=== PATIENT | female | born 1960 | race Caucasian/White ===

== ENCOUNTER 2020-04-13 14:41 | Emergency (ER) | payer BC, SELFPAY ==
--- NOTE | ~2020-04-13 | XR_ITS ---
EXAMINATION: XR knee LT min 4V DATE: 04/13/2020 15:25 INDICATION: Left knee pain. TECHNIQUE: 4 views of left knee were obtained. COMPARISON: None. FINDINGS: Bone alignment is normal. No fracture. There is mild osteoarthritis of medial and lateral c ompartments and moderate osteoarthritis of patellofemoral compartment. No knee joint effusion. IMPRESSION: 1. Moderate left knee osteoarthritis. Reviewed, dictated and finalized at location A. CUSTOMER SERVICE REPRESENTATIVE
[2020-04-13 15:04] VITALS: BP 143/117; PULSE 98; RESP 20; TEMP 37.6; O2SAT 98
--- NOTE | 2020-04-13 15:10 | ED.EXTPRO ---
HPI - Extremity Problem General Chief complaint: Extremity Problem,Nontraumatic Stated complaint: left leg pain Time Seen by Provider: 04/13/20 14:51 Source: patient Mode of arrival: ambulatory Limitations: no limitations History of Present Illness HPI Narrative: Patient presents for evaluation of left knee pain after experiencing a fall just prior to arrival. She indicates her dog hit her in the medial aspect of the left knee causing her to fall and land on her buttocks. She did not hit her head nor have loss of consciousness. She is anticoagulated with Xarelto due to history of DVT and PE. She failed Coumadin therapy and has an IVC filter. Plans are for anticoagulation for life. She states at rest her pain is 4 out of 10 in severity but with movement it increases to a 6 out of 10 in severity. No radicular component to the pain. States she had arthroscopic surgery on both knees about 30 years ago. Related Data Home Medications Medication Instructions Recorded Confirmed duloxetine 60 mg PO DAILY 04/13/20 04/13/20 eletriptan 40 mg PO ONCE 04/13/20 04/13/20 ibandronate 150 mg PO ONCE 04/13/20 04/13/20 levothyroxine [Synthroid] 112 mcg PO DAILY 04/13/20 04/13/20 liothyronine 5 mcg PO DAILY 04/13/20 04/13/20 plwyvb-evezswgv-ewzvnsw [Creon] 1 cap PO TID 04/13/20 04/13/20 rivaroxaban [Xarelto] 20 mg PO DAILY 04/13/20 04/13/20 sacrosidase [Sucraid] 2 ml PO 6XD 04/13/20 04/13/20 topiramate 50 mg PO BID 04/13/20 04/13/20 Allergies Allergy/AdvReac Type Severity Reaction Status Date / Time methimazole Allergy Mild Rash Verified 04/13/20 15:04 Penicillins Allergy Unknown Hives Verified 04/13/20 15:04 Review of Systems Review of Systems: Narrative: CONSTITUTIONAL: Denies fever, chills, or sweats. EYES: Denies visual changes, redness, or discharge. ENT: Denies rhinorrhea, congestion, sore throat, or otalgia. CARDIOVASCULAR: Denies chest pain, palpitations, or edema. RESPIRATORY: Denies cough or dyspnea. GASTROINTESTINAL: Denies abdominal pain, nausea, vomiting, or diarrhea. GENITOURINARY: Denies dysuria or hematuria. SKIN: Denies rash or itching. MUSCULOSKELETAL: Denies back pain, or myalgia. Reports left knee pain NEUROLOGIC: Denies headache, numbness, dizziness, or weakness. PSYCHIATRIC: Denies anxiety or depression. 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 HEAD: Normocephalic, atraumatic. EYES: PERRLA and EOMI. ENT: Nares clear, no rhinorrhea or epistaxis. Mucous membranes moist. Oropharynx without tonsillar hypertrophy exudate or other lesions. Bilateral TMs pearly sylvester nonbulging NECK: Supple. No adenopathy or masses. No carotid bruits or JVD CHEST: Clear to auscultation. No respiratory distress. No wheezes rales or rhonchi HEART: Regular rate and rhythm. No murmur heard. Normal peripheral pulses. ABDOMEN: Soft, nontender, nondistended, normal active bowel sounds. EXTREMITIES: Normal range of motion. No edema. Tenderness over lateral aspect of left knee without tenderness in the medial aspect o
[2020-04-13 15:52] VITALS: BP 138/89
== END 2020-04-13 15:54 | disposition home or self-care (01) ==
PROVIDERS: Emergency Provider Nurse Practitioner; PCP Internal Medicine
DX: S86.812A Strain of other muscle(s) and tendon(s) at lower leg level, left leg, initial encounter (principal); W54.1XXA Struck by dog, initial encounter; Z86.718 Personal history of other venous thrombosis and embolism; Z86.711 Personal history of pulmonary embolism; E03.9 Hypothyroidism, unspecified; Z79.01 Long term (current) use of anticoagulants
CPT/HCPCS: 73564; 99213; G0463

== ENCOUNTER → 2020-04-21 10:12 | Outpatient (CLI) | payer BC, SELFPAY ==
--- NOTE | ~2020-04-21 | MR_ITS ---
EXAMINATION: MR knee LT wo con DATE: 04/21/2020 10:52 INDICATION: Left knee pain. TECHNIQUE: Magnetic resonance imaging (MRI) of the left knee was performed without intravenous contra st. Sequences included axial PD-weighted FS FSE, coronal PD-weighted FSE and PD-weighted FS FSE, sagi ttal PD-weighted FSE, and sagittal T2-weighted FS FSE. COMPARISON: Left knee radiographs 04/13/2020 FINDINGS: Medial compartment: Medial meniscus is normal. There is deep partial thickness cartilage loss of tibial condyle involving the anterolateral articular surface. There is shallow partial-thickness cartilage loss of tibial con dyle involving the central articular surface. There is deep partial thickness cartilage loss of femor al condyle involving the central and lateral articular surface and shallow partial-thickness cartilag e loss involving the medial articular surface. There are tiny marginal osteophytes. Lateral compartment: Lateral meniscus is normal. There is shallow partial-thickness cartilage loss of tibial condyle invol ving the central articular surface. There is deep partial thickness cartilage loss of femoral condyle involving the anteromedial articular surface. Marginal osteophytes are noted. Patellofemoral compartment: There is full-thickness cartilage loss of patella involving the lateral facet, median ridge, and medi al facet with mild subchondral edema-like marrow signal intensity. There is full-thickness cartilage loss of central and lateral trochlea and partial thickness cartilage loss of medial trochlea with mil d subchondral edema-like marrow signal intensity. Osteophytes are noted. Ligaments and tendons: The anterior and posterior cruciate ligaments are normal. Medial collateral ligament is normal. There is a partial tear of biceps femoris tendon. There is a nondisplaced oblique fracture of head of the fibula. There is a sprain of fibular collateral ligament characterized by increased signal intensity. There is mild patellar tendinopathy. Fluid: There is no knee joint effusion. There is edema of suprapatellar fat pad, which is nonspecific but ma y be seen with impingement. IMPRESSION: 1. Nondisplaced oblique fracture of head of the fibula. 2. Partial tear of biceps femoris tendon. Sprain of fibular collateral ligament. 3. Severe chondrosis of patellofemoral compartment and moderate chondrosis of medial and lateral comp artments. Reviewed, dictated and finalized at location A. APEUTIC STRATEGY LEAD IMPRESSION: 1. Nondisplaced oblique fracture of head of the fibula. 2. Partial tear of biceps femoris tendon. Sprain of fibular collateral ligament . 3. Severe chondrosis of patellofemoral compartment and moderate chondrosis of m edial and lateral compartments.
== END ==
PROVIDERS: PCP Internal Medicine; Visit Provider Internal Medicine
DX: S82.832D Other fracture of upper and lower end of left fibula, subsequent encounter for closed fracture with routine healing (principal); X58.XXXD Exposure to other specified factors, subsequent encounter
CPT/HCPCS: 73721

== ENCOUNTER 2020-05-20 02:16 | Emergency (ER) | payer BC, SELFPAY ==
[2020-05-20 02:20] VITALS: BP 155/89; PULSE 105; RESP 22; TEMP 36.5; O2SAT 100
--- NOTE | 2020-05-20 02:27 | ED.DENTAL ---
HPI - Dental/Oral General Chief complaint: Dental/Oral Stated complaint: strep throat Time Seen by Provider: 05/20/20 02:27 Source: patient Mode of arrival: ambulatory Limitations: no limitations History of Present Illness HPI Narrative: Patient is a 59-year-old female who presents for evaluation of sore throat. Patient states she awakened with a hoarse voice, sore throat. She denies fever, rhinorrhea, shortness of breath. No loss of sense of taste or smell. No recent known Covid exposures. Patient was at a earlier in the week with many other people. Patient also states the right side of her neck is red and itchy. No new soaps, lotions or detergents. No wheezing. She does report a mild, dry cough. Patient is not having any difficulty with swallowing but does report pain. Related Data Home Medications Medication Instructions Recorded Confirmed duloxetine 60 mg PO DAILY 04/13/20 04/13/20 eletriptan 40 mg PO ONCE 04/13/20 04/13/20 ibandronate 150 mg PO ONCE 04/13/20 04/13/20 levothyroxine [Synthroid] 112 mcg PO DAILY 04/13/20 04/13/20 liothyronine 5 mcg PO DAILY 04/13/20 04/13/20 qbiwow-ghidbjqr-ntlhtff [Creon] 1 cap PO TID 04/13/20 04/13/20 rivaroxaban [Xarelto] 20 mg PO DAILY 04/13/20 04/13/20 sacrosidase [Sucraid] 2 ml PO 6XD 04/13/20 04/13/20 topiramate 50 mg PO BID 04/13/20 04/13/20 Allergies Allergy/AdvReac Type Severity Reaction Status Date / Time methimazole Allergy Mild Rash Verified 04/13/20 15:04 Penicillins Allergy Unknown Hives Verified 04/13/20 15:04 Review of Systems Review of Systems: Narrative: CONSTITUTIONAL: Denies fever, chills, or sweats. EYES: Denies visual changes, redness, or discharge. ENT: Denies rhinorrhea, congestion, reports sore throat, denies otalgia CARDIOVASCULAR: Denies chest pain, palpitations, or edema. RESPIRATORY: Reports dry cough without dyspnea GASTROINTESTINAL: Denies abdominal pain, nausea, vomiting, or diarrhea. GENITOURINARY: Denies dysuria or hematuria. SKIN: Denies rash or itching. MUSCULOSKELETAL: Denies back pain, joint pain, or myalgia. NEUROLOGIC: Denies headache, numbness, or weakness. 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 EYES: PERRLA and EOMI. ENT: Nares clear, no rhinorrhea or epistaxis. Mucous membranes moist. Uvula is midline. No trismus. No deviation. No evidence of peritonsillar abscess. Erythema of the posterior oropharynx with petechiae present. NECK: Supple. CHEST: No respiratory distress, breathing even and non labored, no wheezing HEART: Regular rate, sinus rhythm ABDOMEN:Non distended, non tender EXTREMITIES: Normal range of motion. No edema. SKIN: Warm, dry, no rash. NEURO:No focal deficits. Alert and oriented x3 Course Vital Signs Vital signs: Vital Signs Temperature 36.5 C 05/20/20 02:20 Pulse Rate 105 H 05/20/20 02:20 Respiratory Rate 22 H 05/20/20 02:20 Blood Pressure 155/89 H 05/20/20 02:20 Pulse Oximetry 100 05/20/20 02:20 Temperature 36.5 C 05/20/20 02:20 Pulse Rate 105 H 05/20/20 02:20 Respiratory Rate 22 H 05/20/20 02:20 Blood Pressure 155/89 H 05/20/20 02:20 Pulse Oximetry 100 05/20/20
[2020-05-20] MEDS: ACETAMINOPHEN 500 MG TABLET 1000 MG PO (02:59)
[2020-05-20] MEDS: DEXAMETHASONE SOD PHOS INJ 4 MG/ML VIAL 10 MG BY MOUTH (03:00)
[2020-05-20] MEDS: CLINDAMYCIN HCL 150 MG CAP 300 MG PO (03:15)
[2020-05-20 03:16] VITALS: BP 134/86; PULSE 88; RESP 16; TEMP 36.7; O2SAT 100
[2020-05-20] MEDS: diphenhydrAMINE HCl CAP 25 MG CAPSULE PO (03:16)
== END 2020-05-20 03:17 | disposition home or self-care (01) ==
PROVIDERS: Emergency Provider Emergency Medicine; PCP Internal Medicine
DX: J02.0 Streptococcal pharyngitis (principal); Z86.718 Personal history of other venous thrombosis and embolism; Z86.711 Personal history of pulmonary embolism; E03.9 Hypothyroidism, unspecified; Z79.01 Long term (current) use of anticoagulants
CPT/HCPCS: 87880; 99283; A9270; J1100

== ENCOUNTER → 2020-12-11 10:54 | Outpatient (CLI) | payer BC, SELFPAY ==
--- NOTE | ~2020-12-11 | MM_ITS ---
EXAMINATION: MM screening [facility] BI w keny HISTORY: Screening TECHNIQUE: Craniocaudal and mediolateral oblique 3-D tomosynthesis images were obtained and synthetic 2-D images were generated. CAD analysis was submitted and interpreted. COMPARISON: Comparison to multiple prior studies sequentially, with oldest reviewed study dated 12/2011. BREAST PARENCHYMAL COMPOSITION: There are scattered areas of fibroglandular density. FINDINGS: There is no evidence of suspicious mass, calcification, or architectural distortion to sugg est malignancy in either breast. There has been no suspicious interval change. IMPRESSION: 1. No mammographic evidence of malignancy. 2. Recommend routine screening mammography in one year. BI-RADS Category 1: Negative Reviewed, dictated and finalized at location A.
== END ==
PROVIDERS: PCP Internal Medicine; Visit Provider Obstetrics & Gynecology
DX: Z12.31 Encounter for screening mammogram for malignant neoplasm of breast (principal)
CPT/HCPCS: 77063; 77067

== ENCOUNTER 2022-01-31 06:24 | Emergency (ER) | payer BC, SELFPAY ==
[2022-01-31] VITALS (10 sets, daily range): BP systolic 122–147; BP diastolic 73–83; PULSE 81–95; RESP 11–22; TEMP 36.8; O2SAT 98–100
--- NOTE | ~2022-01-31 | CT_ITS ---
EXAMINATION: CT abdomen pelvis w con DATE: 01/31/2022 07:52 INDICATION: Mid abdominal pain. Diarrhea. Fever. TECHNIQUE: Computed tomography (CT) of the abdomen and pelvis was performed with 100 mL Omnipaque 350 intravenous contrast. Automated exposure control and iterative reconstruction technique were employe d. The dose-length product was 392.12 mGy-cm. COMPARISON: CT abdomen and pelvis 10/18/2012 FINDINGS: The visualized portions of the lung bases demonstrate mild atelectasis. No pleural effusion . The heart size is normal. No pericardial effusion. There is a 6 mm cyst in the liver. The spleen is normal. There is a gallstone in the gallbladder, which is distended. The pancreas, adrenal glands, a nd kidneys are normal. There is a filter in the infrarenal inferior vena cava. There are surgical rosemary nges of the stomach. There is wall thickening throughout the colon and involving the distal ileum, co nsistent with enterocolitis. There are no pathologically enlarged lymph nodes. There is no free intra peritoneal fluid. There is severe lower lumbar spondylosis. IMPRESSION: 1. Enterocolitis. 2. Cholelithiasis. Gallbladder distention may be secondary to fasting or acute cholecystitis. Reviewed, dictated and finalized at location A.
--- NOTE | ~2022-01-31 | US_ITS ---
EXAMINATION: US abdomen limited DATE: 01/31/2022 08:43 INDICATION: Cholecystitis. TECHNIQUE: Multiple grayscale and Doppler ultrasound images of the abdomen were obtained. COMPARISON: CT abdomen and pelvis 01/31/2022 FINDINGS: The visualized portions of the head, body, and tail of the pancreas are normal. The liver i s normal without focal lesion. There is normal flow in main portal vein. The gallbladder is distended and contains gallstones. No gallbladder wall thickening or sonographic Hayes sign. The common duct is mildly dilated to 8 mm. IMPRESSION: 1. Cholelithiasis. Gallbladder distention may be secondary to fasting. No gallbladder wall thickening or sonographic Hayes sign to suggest acute cholecystitis. 2. Mildly dilated common duct. Reviewed, dictated and finalized at location A. IMPRESSION: 1. Cholelithiasis. Gallbladder distention may be secondary to fasting. No gallb ladder wall thickening or sonographic Haeys sign to suggest acute cholecystiti s. 2. Mildly dilated common duct.
[2022-01-31 07:08] LABS: Alanine Aminotransferase 17 U/L (6-35); Albumin Level 3.9 g/dL (3.5-5.1); Alkaline Phosphatase 81 U/L (38-126); Anion Gap 11 mmol/L (8-16); Aspartate Amino Transferase 27 U/L (14-36); Bilirubin,Total 0.6 mg/dL (0.2-1.3); Blood Urea Nitrogen 10 mg/dL (7-17); Calcium 7.9 mg/dL (8.4-10.2); Carbon Dioxide 24 mmol/L (22-30); Chloride 99 mmol/L (98-107); Estimated CRCL calculation 76 ml/min; Estimated Glomerular Filt Rate > 60; Glucose 92 mg/dL (65-110); Lipase 26 U/L (23-300); Potassium 3.4 mmol/L (3.4-5.0); Sodium 134 mmol/L (137-145)
[2022-01-31 07:25] LABS: Basophils Percent Auto 0.3 % (0.2-1.2); Eosinophils Absolute Auto 0.1 K/mm3 (0-0.3); Eosinophils Percent Auto 0.6 % (0-4.4); Hematocrit 41.8 % (37.0-47.0); Hemoglobin 14.2 g/dL (12.0-15.0); Immature Granulocyte Absolute 0.09 K/mm3 (0.00-0.031); Lymphocytes Absolute Auto 0.99 K/mm3 (0.9-3.2); Lymphocytes Percent Auto 11.1 % (18.3-44.2); Mean Corpuscular Hemoglobin 29.3 pg (26-34); Mean Corpuscular Volume 86.2 fl (80-100); Mean Platelet Volume 9.9 fl (7.4-10.4); Monocytes Percent Auto 11.1 % (2.6-8.5); Neutrophils Absolute Auto 6.8 K/mm3 (1.3-6.7); Neutrophils Percent Auto 75.9 % (45.5-73.1); Platelet Count Result 216 k/mm3 (150-375); Red Blood Count 4.85 M/mm3 (4.2-5.4); Red Cell Distribution Width 13.1 % (11.5-14.5); White Blood Count 8.9 K/mm3 (4.5-10.0)
--- NOTE | 2022-01-31 07:25 | ED.GENADULT ---
HPI - General Adult General Chief complaint: Abdominal Pain Stated complaint: fever body aches stomach cramps Time Seen by Provider: 01/31/22 06:54 History of Present Illness HPI narrative: 61-year-old female presenting to the emergency department for evaluation of abdominal cramping and diarrhea. Patient states the symptoms began on Sunday. Patient reports she has had associated fever body aches and chills. Patient reports he does have a prior history of gastric bypass approximately 6 years ago at a hospital in [place] patient also has a prior history of hysterectomy. Related Data Home Medications Medication Instructions Recorded Confirmed duloxetine 60 mg capsule,delayed 60 mg PO DAILY 04/13/20 07/29/21 release eletriptan 40 mg tablet 40 mg PO ONCE 04/13/20 07/29/21 ibandronate 150 mg tablet 150 mg PO ONCE 04/13/20 07/29/21 levothyroxine 112 mcg tablet 112 mcg PO DAILY 04/13/20 07/29/21 (Synthroid) liothyronine 5 mcg tablet 5 mcg PO DAILY 04/13/20 07/29/21 ztklmi-orxulybe-ctvcgqx 1 cap PO TID 04/13/20 07/29/21 36,000-114,000-180,000 unit capsule,delay rel (Creon) rivaroxaban 20 mg tablet (Xarelto) 20 mg PO DAILY 04/13/20 07/29/21 sacrosidase 8,500 unit/mL oral 2 ml PO 6XD 04/13/20 07/29/21 solution topiramate 50 mg tablet 50 mg PO BID 04/13/20 01/03/21 B Complex 1 mg PO DAILY 01/03/21 07/29/21 B12 1,000 mg MONTHLY 01/03/21 07/29/21 Iron Chews 18 mg DAILY 01/03/21 07/29/21 calcium citrate 1 mg ophthalmic (eye) BID 01/03/21 07/29/21 cetirizine 10 mg HS 01/03/21 07/29/21 gabapentin 600 mg TID 01/03/21 07/29/21 lansoprazole 15 mg BYMOUTH DAILY 01/03/21 07/29/21 multivitamin 1 mg PO DAILY 01/03/21 07/29/21 Allergies Allergy/AdvReac Type Severity Reaction Status Date / Time methimazole Allergy Mild Rash Verified 07/29/21 14:33 Penicillins Allergy Unknown Hives Verified 07/29/21 14:33 Review of Systems Review of Systems: CONSTITUTIONAL: See HPI EYES: Denies visual changes, redness, or discharge. ENT: Denies rhinorrhea, congestion, sore throat, or otalgia. CARDIOVASCULAR: Denies chest pain, palpitations, or edema. RESPIRATORY: Denies cough or dyspnea. GASTROINTESTINAL: See HPI GENITOURINARY: Denies dysuria or hematuria. SKIN: Denies rash or itching. MUSCULOSKELETAL: Denies back pain, joint pain, or myalgia. NEUROLOGIC: Denies headache, numbness, or weakness. 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 HEAD: normocephalic, atraumatic. EYES: PERRLA/EOMI, conjunctivae clear. NOSE: Normal no drainage EARS:TMS clear with good light reflex. RESPIRATORY: Airway patent, respirations nonlabored. Clear to auscultation bilaterally, no rales, rhonchi, wheezing. CARDIOVASCULAR: Regular rate and rhythm without murmurs rubs or gallops. ABDOMINAL: Soft, nondistended, normal bowel sounds, generalized tenderness to palpation MUSCULOSKELETAL: Moves all extremities. Strength/ROM intact, No edema, No calf tenderness. NEURO: Alert. Cranial nerves II through XII intact. Grossly intact SKIN: Warm, dry. Normal Color Course Course Emergency Course: Patient did have d
[2022-01-31] MEDS: SODIUM CHLORIDE 0.9% IV 1,000 ML 999 ML IV CONT (07:57)
[2022-01-31] MEDS: HYDROmorphone HCL INJ (*CRX) 1 MG/ML SYR 0.5 MG IV PUSH (07:57)
--- NOTE | 2022-01-31 08:56 | PC.NURSE ---
Patient states she is still unable to urinate at this time.
--- NOTE | 2022-01-31 09:39 | PC.NURSE ---
Per GERRI Mckinney, no urine specimen needed.
== END 2022-01-31 10:23 | disposition home or self-care (01) ==
PROVIDERS: Emergency Medicine; Emergency Provider Emergency Medicine; PCP Internal Medicine
DX: R19.7 Diarrhea, unspecified (principal); E03.9 Hypothyroidism, unspecified; Z98.84 Bariatric surgery status; Z86.718 Personal history of other venous thrombosis and embolism; Z86.711 Personal history of pulmonary embolism; Z79.01 Long term (current) use of anticoagulants
CPT/HCPCS: 36415; 74177; 76705; 80053; 83690; 85025; 96361; 96374; 96375; 99284; J0131; J1170; J7030; Q9967

== ENCOUNTER → 2022-05-11 16:44 | Outpatient (CLI) | payer BC, SELFPAY ==
--- NOTE | ~2022-05-11 | MM_ITS ---
EXAMINATION: MM screening [facility] BI w keny HISTORY: Screening TECHNIQUE: Craniocaudal and mediolateral oblique 3-D tomosynthesis images were obtained and synthetic 2-D images were generated. CAD analysis was submitted and interpreted. COMPARISON: Comparison to multiple prior studies sequentially, with oldest reviewed study dated 10/2012. BREAST PARENCHYMAL COMPOSITION: There are scattered areas of fibroglandular density. FINDINGS: There is no evidence of suspicious mass, calcification, or architectural distortion to sugg est malignancy in either breast. There has been no suspicious interval change. IMPRESSION: 1. No mammographic evidence of malignancy. 2. Recommend routine screening mammography in one year. BI-RADS Category 1: Negative Reviewed, dictated and finalized at location B. NOLOGY LEAD
== END ==
PROVIDERS: Visit Provider Obstetrics & Gynecology
DX: Z12.31 Encounter for screening mammogram for malignant neoplasm of breast (principal)
CPT/HCPCS: 77063; 77067

== ENCOUNTER 2024-01-07 04:01 | Emergency (ER) | payer OTHER, SELFPAY ==
--- NOTE | ~2024-01-07 | CT_ITS ---
EXAMINATION: CT abdomen pelvis wo con DATE: 01/07/2024 04:50 INDICATION: Right flank pain. Hematuria. TECHNIQUE: Computed tomography (CT) of the abdomen and pelvis was performed without intravenous contr ast. Automated exposure control and iterative reconstruction technique were employed. The dose-length product was 398.25 mGy-cm. COMPARISON: CT abdomen and pelvis 01/31/2022 FINDINGS: The visualized portions of lung bases demonstrate minimal atelectasis. There is mild bronch iectasis in right middle lobe. No pleural effusion. The heart size is normal. No pericardial effusion . The liver is normal. There are gallstones in the gallbladder, which is normal in size. The spleen, pancreas, adrenal glands, and kidneys are normal. There is no urolithiasis. There is a phlebolith in right ovarian vein. There is a filter in the inferior vena cava. There are surgical changes in the st omach. There are no dilated loops of bowel. The appendix is normal. There are no pathologically enlar ged lymph nodes. There is no free intraperitoneal fluid. There is severe lower lumbar spondylosis. IMPRESSION: 1. No urolithiasis. 2. Cholelithiasis. Reviewed, dictated and finalized at location A.
[2024-01-07 04:03] VITALS: BP 151/94; PULSE 100; RESP 20; TEMP 36.9; O2SAT 100
[2024-01-07 04:33] LABS: Non Pathogenic Casts 0-2; RBC Urine >100 /hpf (0-2); Squamous Epithelial Cell Urine None Seen /hpf (Few)
[2024-01-07 04:42] LABS: Add Urine Microscopic? YES; Appearance Urine Cloudy (Clear); Bilirubin Urine Negative (Negative); Glucose Urine UA Negative (Negative); Ketones Urine Negative (Negative); Leukocyte Esterase Ur 1+ LEU/UL (Negative); Nitrate Urine Negative (Negative); Protein Urine 3+ mg/dL (Negative); Specific Grav Ur 1.019 (1.001-1.035); pH Urine 6.5 (5.0-9.0)
[2024-01-07 04:43] LABS: Blood Urine 4+ (Negative); Color Urine Red (Yellow)
[2024-01-07 04:44] LABS: Bacteria Urine 1+ /hpf; WBC Urine 51-75 /hpf (0-3)
--- NOTE | 2024-01-07 05:30 | ED.FEMALEGU ---
HPI - Female Genitourinary General Chief complaint: Urogenital-Female Stated complaint: hematuria Time Seen by Provider: 01/07/24 04:04 History of Present Illness HPI Narrative: Patient presenting with pain to right flank, and dysuria, but started earlier tonight, she feels like she is not able to empty completely, is going frequently, and there is blood in her urine. Has never had a urinary tract infection before Related Data Home Medications Medication Instructions Recorded Confirmed levothyroxine 112 mcg tablet 112 mcg PO DAILY 04/13/20 09/28/23 (Synthroid) liothyronine 5 mcg tablet 5 mcg PO TID 04/13/20 09/28/23 rivaroxaban 20 mg tablet (Xarelto) 20 mg PO DAILY 04/13/20 09/28/23 topiramate 50 mg tablet 50 mg PO DAILY 04/13/20 09/28/23 B12 1,000 mg IM MONTHLY 01/03/21 09/28/23 gabapentin 300 mg PO DAILY 01/03/21 09/28/23 lansoprazole 15 mg BYMOUTH DAILY 01/03/21 09/28/23 Calcium Citrate + D 1 tablet PO BID 02/17/22 09/28/23 denosumab 60 mg/mL subcutaneous 60 mg subcut [id number] 02/17/22 09/28/23 syringe (Prolia) iron, carbonyl 15 mg chewable 30 mg PO HS 02/17/22 09/28/23 tablet (Iron Chews) magnesium 250 mg tablet 250 mg PO DAILY 02/17/22 09/28/23 modafinil 200 mg tablet 200 mg PO QAM 02/17/22 09/28/23 multivitamin 1 tablet PO DAILY 02/17/22 09/28/23 rizatriptan 10 mg tablet 10 mg PO Q12-24H PRN Migraine 02/17/22 09/28/23 Headache vitamin B complex 1 tablet PO DAILY 02/17/22 09/28/23 ramelteon 8 mg tablet 8 mg PO HS 03/23/23 09/28/23 Allergies Allergy/AdvReac Type Severity Reaction Status Date / Time methimazole Allergy Mild Rash Verified 01/07/24 04:06 Penicillins Allergy Unknown Hives Verified 01/07/24 04:06 Review of Systems Review of Systems: All systems reviewed & are unremarkable except as noted in HPI and below PMFSH Past Medical History Medical History History of DVT (deep vein thrombosis) History of pulmonary embolism Hypothyroidism Surgical History Surgical History H/O arthroscopic knee surgery Family History Family History Mother Hypothyroidism Social History Social History Smoking status: Never smoker Alcohol intake: never Substance use: never Living arrangements: with family 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 EYES: EOMI, conjunctiva normal ENT: Hearing grossly intact LUNGS: Nonlabored breathing. HEART: [Regular rate and rhythm] ABD: [Soft], [nontender to palpation] EXT: Normal range of motion SKIN: [No rashes or lesions.] NEURO: [Alert and oriented x 3. No gross focal sensory or strength deficits.] PSYCH: Normal affect Course Vital Signs Vital signs: Vital Signs Temperature 98.4 F 01/07/24 04:03 Pulse Rate 100 01/07/24 04:03 Respiratory Rate 20 01/07/24 04:03 Blood Pressure 151/94 H 01/07/24 04:03 Pulse Oximetry 100 01/07/24 04:03 Oxygen Delivery Room Air 01/07/24 04:03 Temperature 98.4 F 01/07/24 04:03 Pulse Rate 100 01/07/24 04:03 Respiratory Rate 20 01/07/24 04:03 Blood Pressure 151/94 H 01/07/24 04:03 Pulse Oximetry 100 01/07/24 04:03 Oxygen Delivery Room Air 01/07/24 04:03 MDM - Female Genitourinary MDM Narrative Medical decision making narrative: 63 year-old patient presenting with suprapubic pain and urinary symptoms consistent with UTI. Urinalysis is obtained and positive for
[2024-01-07] MEDS: MORPHINE SULFATE (*CRX) 2 MG/ML INJ IV PUSH (06:14)
[2024-01-07 06:30] LABS: Basophils Percent Auto 0.3 % (0.2-1.2); Eosinophils Absolute Auto 0.1 K/mm3 (0-0.3); Eosinophils Percent Auto 0.8 % (0-4.4); Hematocrit 41.1 % (37.0-47.0); Hemoglobin 13.6 g/dL (12.0-15.0); Immature Granulocyte Absolute 0.03 K/mm3 (0.00-0.031); Immature Granulocyte Percent A 0.3 % (0-0.5); Lymphocytes Absolute Auto 1.24 K/mm3 (0.9-3.2); Lymphocytes Percent Auto 12.4 % (18.3-44.2); Mean Corpuscular HGB Conc 33.1 g/dl (32-36); Mean Corpuscular Volume 90.7 fl (80-100); Mean Platelet Volume 9.8 fl (7.4-10.4); Monocytes Absolute Auto 0.7 K/mm3 (0.1-0.6); Monocytes Percent Auto 7.2 % (2.6-8.5); Neutrophils Absolute Auto 7.9 K/mm3 (1.3-6.7); Platelet Count Result 179 k/mm3 (150-375); Red Blood Count 4.53 M/mm3 (4.2-5.4); Red Cell Distribution Width 12.6 % (11.5-14.5)
[2024-01-07 06:37] LABS: Anion Gap 5 mmol/L (4-12); Blood Urea Nitrogen 18 mg/dL (7-17); Calcium 8.8 mg/dL (8.4-10.2); Carbon Dioxide 33 mmol/L (22-30); Chloride 100 mmol/L (98-107); Estimated CRCL calculation 65 ml/min; Estimated Glomerular Filt Rate > 60; Glucose 86 mg/dL (65-110); Sodium 138 mmol/L (137-145)
[2024-01-07 07:12] VITALS: BP 110/74; PULSE 84; RESP 15; O2SAT 97
== END 2024-01-07 07:14 | disposition home or self-care (01) ==
PROVIDERS: Emergency Provider Emergency Medicine
DX: N10 Acute pyelonephritis (principal); E03.9 Hypothyroidism, unspecified; Z86.718 Personal history of other venous thrombosis and embolism; Z86.711 Personal history of pulmonary embolism; Z79.01 Long term (current) use of anticoagulants; Z79.899 Other long term (current) drug therapy
CPT/HCPCS: 36415; 74176; 80048; 81001; 85025; 87077; 87086; 87088; 87186; 96365; 96375; 99284; J0696; J2270

== ENCOUNTER 2024-07-10 10:30 | Outpatient (CLI) | payer MEDICARE, SELFPAY ==
--- NOTE | ~2024-07-10 | MM_ITS ---
EXAMINATION: MM screening sonu BI w keny HISTORY: Screening TECHNIQUE: Craniocaudal and mediolateral oblique 3-D tomosynthesis images were obtained and synthetic 2-D images were generated. CAD analysis was submitted and interpreted. COMPARISON: Comparison to multiple prior studies sequentially, with oldest reviewed study dated 04/27. BREAST PARENCHYMAL COMPOSITION: . Not dense: There are scattered areas of fibroglandular density. FINDINGS: There is no evidence of suspicious mass, calcification, or architectural distortion to sugg est malignancy in either breast. There has been no suspicious interval change. IMPRESSION: 1. No mammographic evidence of malignancy. 2. Recommend routine screening mammography in one year. BI-RADS Category 1: Negative Reviewed, dictated and finalized at location B. [facility]
== END 2024-07-10 10:31 | disposition home or self-care (01) ==
LOC: MICIMG 10:31
PROVIDERS: PCP Obstetrics & Gynecology; Visit Provider Obstetrics & Gynecology
DX: Z12.31 Encounter for screening mammogram for malignant neoplasm of breast (principal)
CPT/HCPCS: 77063; 77067

== ENCOUNTER 2025-05-04 07:52 | Emergency (ER) | payer MEDICARE, SELFPAY ==
--- NOTE | ~2025-05-04 | CT_ITS ---
EXAM/PROCEDURE: CT lumbar spine wo con HISTORY: acute low back pain COMPARISON: None available. TECHNIQUE: Lumbar spine CT FINDINGS: No acute or aggressive bony or soft tissue process seen. Multilevel degenerative changes are present throughout the lumbar spine involving disc spaces and posterior element. Degenerative disc changes are most severe at L5-S1 with advanced desiccation and disc space narrowing, as well as at L4-5 where there is moderately severe degenerative disc and facet changes resulting in what is probably at least mild spinal canal stenosis. There is also a 5 x 4 mm (midline calcification at the T12-L1 level image 18 series 4 probably representing calcified disc osteophyte complex. No large disc herniations or severe spinal canal stenosis seen. 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 IMPRESSION: No acute or aggressive bony or soft tissue process seen. Multilevel degenerative changes with probable spinal canal stenosis at L4-5 and prominent left para midline disc osteophyte calcification at T12-L1. Comment: Consider correlation with follow-up lumbar spine MRI for optimal sensitivity. Reviewed, dictated and finalized at location A. SHOP SUPERVISOR IMPRESSION: No acute or aggressive bony or soft tissue process seen. Multilevel degenerative changes with probable spinal canal stenosis at L4-5 and prominent left para midline disc osteophyte calcification at T12-L1. Comment: Consider correlation with follow-up lumbar spine MRI for optimal sensi tivity.
[2025-05-04 08:05] VITALS: BP 105/87; PULSE 86; RESP 16; TEMP 36.3; O2SAT 100
--- OUTSIDE RECORDS SUMMARY | 2025-05-04 08:21 | XMS_ITS | Encounter Summary ---
Author Organization [facility] Address 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
--- OUTSIDE RECORDS SUMMARY | 2025-05-04 08:21 | XMS_ITS | Encounter Summary ---
Author Organization [facility] Address 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
--- OUTSIDE RECORDS SUMMARY | 2025-05-04 08:21 | XMS_ITS | Encounter Summary ---
Author Organization [facility] Address [address] [place] [address] Care Team Providers Care Shingle Grader Name Role Phone Robert Sutton DO Primary Care Provider Encounter Details Date Type Department Care Team (Late st Contact Info) Description 06/18/2002 Outpatient Historical [facility] Internal Medicine 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
--- OUTSIDE RECORDS SUMMARY | 2025-05-04 08:21 | XMS_ITS | Encounter Summary ---
Author Organization [facility] Address 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
--- OUTSIDE RECORDS SUMMARY | 2025-05-04 08:21 | XMS_ITS | Encounter Summary ---
Author Organization [facility] Address [address] [place] [address] Care Team Providers Care Yeast Washer Name Role Phone Robert Sutton DO Primary Care Provider Encounter Details Date Type Department Care Team (Late st Contact Info) Description 07/15/2002 Outpatient Historical [facility] Internal Medicine 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
--- OUTSIDE RECORDS SUMMARY | 2025-05-04 08:21 | XMS_ITS | Encounter Summary ---
Author Organization [facility] Address [address] [place] [address] Care Team Providers Care Bulk Mail Clerk Name Role Phone Robert Sutton DO Primary Care Provider Encounter Details Date Type Department Care Team (Late st Contact Info) Description 07/15/2002 Outpatient Historical [facility] Internal Medicine 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
--- OUTSIDE RECORDS SUMMARY | 2025-05-04 08:21 | XMS_ITS | Encounter Summary ---
Author Organization [facility] Address [address] [place] [address] Care Team Providers Care Metal Cnc Operator Name Role Phone Robert Sutton DO Primary Care Provider Encounter Details Date Type Department Care Team (Late st Contact Info) Description 08/08/2004 Outpatient Historical [facility] Internal Medicine 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
--- OUTSIDE RECORDS SUMMARY | 2025-05-04 08:21 | XMS_ITS | Encounter Summary ---
Author Organization [facility] Address 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
--- OUTSIDE RECORDS SUMMARY | 2025-05-04 08:21 | XMS_ITS | Encounter Summary ---
Author Organization [facility] Address [address] [place] [address] Care Team Providers Care Machine Fastener Name Role Phone Robert Sutton DO Primary Care Provider Encounter Details Date Type Department Care Team (Late st Contact Info) Description 12/30/2004 Outpatient Historical 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 Gender Identity Not on file Sexual Orientation Not on file documented as of this encounter Last Filed Vital Signs Vital Sign Reading Time Taken Comments Blood Pressure 120/70 12/30/2004 4:00 PM CDT Pulse 4 12/30/2004 4:00 PM CDT Temperature 36.4 C (97.6 F) 12/30/2004 4:00 PM CDT Respiratory Rate - - Oxygen Saturation - - Inhaled Oxygen Concentration - - Weight 81.2 kg (179 lb) 12/30/2004 4:00 PM CDT Height - - Body Mass Index - - documented in this encounter Plan of Treatment Not on file documented as of this encounter Visit Diagnoses Not on filedocumented in this encounter Care Teams Machine Fastener Relationship Specialty Start Date End Date Robert Sutton DO PCP - General 05/13/15 documented as of this encounter
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
--- OUTSIDE RECORDS SUMMARY | 2025-05-04 08:21 | XMS_ITS | Encounter Summary ---
Author Organization [facility] Address [address] [place] [address] Care Team Providers Care Fermenter Helper Name Role Phone Robert Sutton DO Primary Care Provider Encounter Details Date Type Department Care Team (Late st Contact Info) Description 07/15/2002 Outpatient Historical [facility] Internal Medicine 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
--- OUTSIDE RECORDS SUMMARY | 2025-05-04 08:21 | XMS_ITS | Encounter Summary ---
Author Organization [facility] Address [address] [place] [address] Care Team Providers Care Blockman Name Role Phone Robert Sutton DO Primary Care Provider Encounter Details Date Type Department Care Team (Late st Contact Info) Description 12/15/2003 Outpatient Historical [facility] Internal Medicine 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
--- OUTSIDE RECORDS SUMMARY | 2025-05-04 08:21 | XMS_ITS | Clinical Summary ---
Author Organization [facility] Address [address] [place] [address] Phone Care Team Providers Care District Service Manager Name Role Phone Robert Sutton DO Primary Care Provider Allergies Active Allergy Reactions Criticality Noted Date Comments Clarithromycin Hives High 08/02/2011 Methimazole 07/15/2002 Penicillins 07/15/2002 Medications levothyroxine (SYNTHROID) 112 mcg Oral tablet Take 112 mcg by mouth daily butcher or smallgoods maker. Active topiramate (TOPAMAX) 50 mg Oral tablet Take 50 mg by mouth 2 times daily. Active omeprazole (PRILOSEC) 20 mg Oral CpDR Take 20 mg by mouth daily. Active liothyronine (CYTOMEL) 5 mcg Oral Tab Take 5 mcg by mouth 2 times daily. Active estradiol (ESTRADERM, VIVELLE) 0.1 mg/24 hr Transdermal patch Apply 1 Patch to skin as directed twice weekly. Active MULTIVITAMIN (MULTIPLE VITAMINS ORAL) Take by mouth. Active calcium citrate 1,000 mg Oral Tab Take 1,000 mg by mouth daily. Active clindamycin (CLEOCIN) 150 mg Oral capsule Take 1 Cap by mouth 4 times daily. 28 Cap none 2 Active ibuprofen (MOTRIN) 600 mg Oral tablet Take 1 Tab by mouth every 6 hours as needed for Pain, Mild. 20 Tab None 2 Active multivitamin (DAILY-SOCORRO) Oral tablet Take 1 Tab by mouth daily. Active OTHER Take 2 Tabs by mouth daily. Calcium Citrate/Magne sium 300mg/50 mg: take 2 tabs po daily Active fish oil-omega-3 fatty acids 340-1,000 mg Oral Cap Take 1 Cap by mouth daily. Active folic acid (FOLVITE) 0.8 mg Oral Tab Take 800 mcg by mouth daily. Active ascorbic acid (VITAMIN C) 500 mg Oral tablet Take 500 mg by mouth daily. Active Evening [place] Oil 500 mg Oral Cap Take 1 Cap by mouth daily. Active Chromium Picolinate 200 mcg Oral Cap Take 200 mcg by mouth daily. Active flaxseed Oil 1,000 mg Oral Cap Take 1,000 mg by mouth daily. Active CINNAMON BARK (CINNAMON ORAL) Take 2,000 mg by mouth daily. Active Cholecalciferol, Vitamin D3, 2,000 unit Oral Cap Take 2,000 Units by mouth daily. Active Active Problems Problem Noted Date Diagnosed Date Headache(784.0) 11/14/2004 Reflux esophagitis 08/08/2004 Acute pharyngitis 08/08/2004 Other postablative hypothyroidism 06/30/2003 Obesity, unspecified 06/18/2002 Social History Tobacco Use Types Packs/Day Years Used Date Smoking Tobacco: Never Alcohol Use Standard Drinks/Week Comments Yes 0 (1 standard drink = 0.6 oz pur e alcohol) Comments No Sex and Gender Information Value Date Recorded Sex Assigned at Not on file Legal Sex Female 4:15 AM PEGA DEVELOPER Gender Identity Not on file Sexual Orientation Not on file Occupation Industry Job Start Date Job End Date Not on file Not on file Not on file Not on file Last Filed Vital Signs Vital Sign Reading Time Taken Comments Blood Pressure 139/94 08/02/2011 12:02 PM PEGA DEVELOPER Pulse 85 08/02/2011 12:02 PM PEGA DEVELOPER Temperature 36.8 C (98.3 F) 08/02/2011 12:02 PM PEGA DEVELOPER Respiratory Rate 16 08/02/2011 12:02 PM PEGA DEVELOPER Oxygen Saturation 100% 08/02/2011 12:02 PM PEGA DEVELOPER Inhaled Oxygen Concentration - - Weight 79.4 kg (175 lb) 08/02/2011 12:02 PM PEGA DEVELOPER Height 167.6 cm (5' 6) 08/02/2011 12:02 PM PEGA DEVELOPER Body Mass Index 28.25 08/02/2011 12:02 PM PEGA DEVELOPER Plan of Treatment Health Maintenance Due Date Last Done Comments DTAP/TDAP/TD VACCINES (1 - Tdap) 1977 BREAST CANCER SCREENING 1998 COLORECTAL SCREENING 10/31/2003 Colorectal Cancer Screening 10/31/2003 FIT-DNA Q 3 years 10/31/2003 FIT/FOBT Q 1 year 10/31/2003 Flex Sig/CT Colonography Q 5 years 10/31/2003 PNEUMOCOCCAL VACCINE 50+ YEARS (1 of 1 - PCV) 10/31/19 09 ZOSTER VACCINE (1 of 2) 2008 OSTEOPOROSIS SCREENING 10/31/2023 INFLUENZA VACCINE (#1) 2024 RSV VACCINE (60+ or ) (1 - 1-dose 75+ series) 2033 Insurance [employer] PPO Care Teams District Service Manager Relationship Specialty Start Date End Date Robert Sutton DO PCP - General 05/13/15
--- OUTSIDE RECORDS SUMMARY | 2025-05-04 08:21 | XMS_ITS | Encounter Summary ---
Author Organization [facility] Address [address] [place] [address] Care Team Providers Care Instrument Fitter Name Role Phone Robert Sutton DO Primary Care Provider Encounter Details Date Type Department Care Team (Late st Contact Info) Description 07/15/2002 Outpatient Historical [facility] Internal Medicine [address] [place] [address] Joe Pelayo MD [address] [facility] [address] [place] [address] Social History Tobacco Use Types Packs/Day Years Used Date Smoking Tobacco: Never Assessed Comments Unknown Sex and Gender Information Value Date Recorded Sex Assigned at Not on file Legal Sex Female 4:15 AM DENTAL CLAIMS PROCESSOR Gender Identity Not on file Sexual Orientation Not on file documented as of this encounter Plan of Treatment Not on file documented as of this encounter Visit Diagnoses Not on filedocumented in this encounter Care Teams Instrument Fitter Relationship Specialty Start Date End Date Robert Sutton DO PCP - General 05/13/15 documented as of this encounter
--- OUTSIDE RECORDS SUMMARY | 2025-05-04 08:22 | XMS_ITS | Encounter Summary ---
Author Organization [facility] Address [address] [place] [address] Care Team Providers Care Contracts Attorney Name Role Phone Robetr Sutton DO Primary Care Provider Encounter Details Date Type Department Care Team (Late st Contact Info) Description 11/22/2004 Outpatient Historical [facility] Internal Medicine [address] [place] [address] Joe Pelayo MD [address] [facility] [address] [place] [address] Social History Tobacco Use Types Packs/Day Years Used Date Smoking Tobacco: Never Assessed Comments Unknown Sex and Gender Information Value Date Recorded Sex Assigned at Not on file Legal Sex Female 4:15 AM BEEF BREAKER Gender Identity Not on file Sexual Orientation Not on file documented as of this encounter Plan of Treatment Not on file documented as of this encounter Visit Diagnoses Not on filedocumented in this encounter Care Teams Contracts Attorney Relationship Specialty Start Date End Date Robert Sutton DO PCP - General 05/13/15 documented as of this encounter
--- OUTSIDE RECORDS SUMMARY | 2025-05-04 08:22 | XMS_ITS | Encounter Summary ---
Author Organization [facility] Address [address] [place] [address] Care Team Providers Care Precast Concrete Ironworker Name Role Phone Robert Sutton DO Primary Care Provider Encounter Details Date Type Department Care Team (Late st Contact Info) Description 07/15/2002 Outpatient Historical [facility] Internal Medicine [address] [place] [address] Joe Pelayo MD [address] [facility] [address] [place] [address] Social History Tobacco Use Types Packs/Day Years Used Date Smoking Tobacco: Never Assessed Comments Unknown Sex and Gender Information Value Date Recorded Sex Assigned at Not on file Legal Sex Female 4:15 AM HOT TAR ROOFER HELPER Gender Identity Not on file Sexual Orientation Not on file documented as of this encounter Plan of Treatment Not on file documented as of this encounter Visit Diagnoses Not on filedocumented in this encounter Care Teams Precast Concrete Ironworker Relationship Specialty Start Date End Date Robert Sutton DO PCP - General 05/13/15 documented as of this encounter
--- OUTSIDE RECORDS SUMMARY | 2025-05-04 08:22 | XMS_ITS | Encounter Summary ---
Author Organization [facility] Address [address] [place] [address] Care Team Providers Care New Car Make Ready Mechanic Name Role Phone Robert Sutton DO Primary Care Provider Encounter Details Date Type Department Care Team (Late st Contact Info) Description 03/17/2003 Outpatient Historical [facility] Internal Medicine [address] [place] [address] Joe Pelayo MD [address] [facility] [address] [place] [address] Social History Tobacco Use Types Packs/Day Years Used Date Smoking Tobacco: Never Assessed Comments Unknown Sex and Gender Information Value Date Recorded Sex Assigned at Not on file Legal Sex Female 4:15 AM CASE MONITOR Gender Identity Not on file Sexual Orientation Not on file documented as of this encounter Plan of Treatment Not on file documented as of this encounter Visit Diagnoses Not on filedocumented in this encounter Care Teams New Car Make Ready Mechanic Relationship Specialty Start Date End Date Robert Sutton DO PCP - General 05/13/15 documented as of this encounter
--- OUTSIDE RECORDS SUMMARY | 2025-05-04 08:22 | XMS_ITS | Encounter Summary ---
Author Organization [facility] Address [address] [place] [address] Care Team Providers Care Registered Nurse Practitioner Name Role Phone Robert Sutton DO Primary Care Provider Encounter Details Date Type Department Care Team (Late st Contact Info) Description 03/17/2003 Outpatient Historical [facility] Internal Medicine [address] [place] [address] Joe Pelayo MD [address] [facility] [address] [place] [address] Social History Tobacco Use Types Packs/Day Years Used Date Smoking Tobacco: Never Assessed Comments Unknown Sex and Gender Information Value Date Recorded Sex Assigned at Not on file Legal Sex Female 4:15 AM AVIATION NEUROPSYCHOLOGIST Gender Identity Not on file Sexual Orientation Not on file documented as of this encounter Plan of Treatment Not on file documented as of this encounter Visit Diagnoses Not on filedocumented in this encounter Care Teams Registered Nurse Practitioner Relationship Specialty Start Date End Date Robert Sutton DO PCP - General 05/13/15 documented as of this encounter
--- OUTSIDE RECORDS SUMMARY | 2025-05-04 08:22 | XMS_ITS | Encounter Summary ---
Author Organization [facility] Address [address] [place] [address] Care Team Providers Care Law Enforcement Officer Name Role Phone Robert Sutton DO Primary Care Provider Encounter Details Date Type Department Care Team (Late st Contact Info) Description 06/30/2003 Outpatient Historical [facility] Internal Medicine [address] [place] [address] Joe Pelayo MD [address] [facility] [address] [place] [address] Social History Tobacco Use Types Packs/Day Years Used Date Smoking Tobacco: Never Assessed Comments Unknown Sex and Gender Information Value Date Recorded Sex Assigned at Not on file Legal Sex Female 4:15 AM SENIOR FIELD SERVICE ENGINEER Gender Identity Not on file Sexual Orientation Not on file documented as of this encounter Plan of Treatment Not on file documented as of this encounter Visit Diagnoses Not on filedocumented in this encounter Care Teams Law Enforcement Officer Relationship Specialty Start Date End Date Robert Sutton DO PCP - General 05/13/15 documented as of this encounter
--- OUTSIDE RECORDS SUMMARY | 2025-05-04 08:22 | XMS_ITS | Encounter Summary ---
Author Organization [facility] Address [address] [place] [address] Care Team Providers Care Phlebotomy Support Tech Name Role Phone Robert Sutton DO Primary Care Provider Encounter Details Date Type Department Care Team (Late st Contact Info) Description 11/17/2002 Outpatient Historical [facility] Internal Medicine [address] [place] [address] Joe Pelayo MD [address] [facility] [address] [place] [address] Social History Tobacco Use Types Packs/Day Years Used Date Smoking Tobacco: Never Assessed Comments Unknown Sex and Gender Information Value Date Recorded Sex Assigned at Not on file Legal Sex Female 4:15 AM STEEL HANDLER Gender Identity Not on file Sexual Orientation Not on file documented as of this encounter Plan of Treatment Not on file documented as of this encounter Visit Diagnoses Not on filedocumented in this encounter Care Teams Phlebotomy Support Tech Relationship Specialty Start Date End Date Robert Sutton DO PCP - General 05/13/15 documented as of this encounter
--- OUTSIDE RECORDS SUMMARY | 2025-05-04 08:22 | XMS_ITS | Encounter Summary ---
Author Organization [facility] Address [address] [place] [address] Care Team Providers Care Historiography Professor Name Role Phone Robert Sutton DO Primary Care Provider Encounter Details Date Type Department Care Team (Late st Contact Info) Description 08/26/2002 Outpatient Historical [facility] Internal Medicine [address] [place] [address] Joe Pelayo MD [address] [facility] [address] [place] [address] Social History Tobacco Use Types Packs/Day Years Used Date Smoking Tobacco: Never Assessed Comments Unknown Sex and Gender Information Value Date Recorded Sex Assigned at Not on file Legal Sex Female 4:15 AM GREEN MARKETING SPECIALIST Gender Identity Not on file Sexual Orientation Not on file documented as of this encounter Plan of Treatment Not on file documented as of this encounter Visit Diagnoses Not on filedocumented in this encounter Care Teams Historiography Professor Relationship Specialty Start Date End Date Robert Sutton DO PCP - General 05/13/15 documented as of this encounter
--- OUTSIDE RECORDS SUMMARY | 2025-05-04 08:22 | XMS_ITS | Encounter Summary ---
Author Organization [facility] Address [address] [place] [address] Care Team Providers Care Farm Equipment Assembler Name Role Phone Robert Sutton DO Primary Care Provider Encounter Details Date Type Department Care Team (Late st Contact Info) Description 11/17/2002 Outpatient Historical [facility] Internal Medicine [address] [place] [address] Joe Pelayo MD [address] [facility] [address] [place] [address] Social History Tobacco Use Types Packs/Day Years Used Date Smoking Tobacco: Never Assessed Comments Unknown Sex and Gender Information Value Date Recorded Sex Assigned at Not on file Legal Sex Female 4:15 AM STAFF RADIATION THERAPIST Gender Identity Not on file Sexual Orientation Not on file documented as of this encounter Plan of Treatment Not on file documented as of this encounter Visit Diagnoses Not on filedocumented in this encounter Care Teams Farm Equipment Assembler Relationship Specialty Start Date End Date Robert Sutton DO PCP - General 05/13/15 documented as of this encounter
--- OUTSIDE RECORDS SUMMARY | 2025-05-04 08:22 | XMS_ITS | Encounter Summary ---
Author Organization [facility] Address [address] [place] [address] Care Team Providers Care Maintenance And Repair Worker Name Role Phone Robert Sutton DO Primary Care Provider Encounter Details Date Type Department Care Team (Late st Contact Info) Description 08/26/2002 Outpatient Historical [facility] Internal Medicine [address] [place] [address] Joe Pelayo MD [address] [facility] [address] [place] [address] Social History Tobacco Use Types Packs/Day Years Used Date Smoking Tobacco: Never Assessed Comments Unknown Sex and Gender Information Value Date Recorded Sex Assigned at Not on file Legal Sex Female 4:15 AM MIXING TANK OPERATOR Gender Identity Not on file Sexual Orientation Not on file documented as of this encounter Plan of Treatment Not on file documented as of this encounter Visit Diagnoses Not on filedocumented in this encounter Care Teams Maintenance And Repair Worker Relationship Specialty Start Date End Date Robert Sutton DO PCP - General 05/13/15 documented as of this encounter
--- OUTSIDE RECORDS SUMMARY | 2025-05-04 08:22 | XMS_ITS | Encounter Summary ---
Author Organization [facility] Address [address] [place] [address] Care Team Providers Care Gas Cutting Machine Operator Name Role Phone Robert Sutton DO Primary Care Provider Encounter Details Date Type Department Care Team (Late st Contact Info) Description 06/30/2003 Outpatient Historical [facility] Internal Medicine [address] [place] [address] Joe Pelayo MD [address] [facility] [address] [place] [address] Social History Tobacco Use Types Packs/Day Years Used Date Smoking Tobacco: Never Assessed Comments Unknown Sex and Gender Information Value Date Recorded Sex Assigned at Not on file Legal Sex Female 4:15 AM CLOTH MERCERIZER OPERATOR Gender Identity Not on file Sexual Orientation Not on file documented as of this encounter Plan of Treatment Not on file documented as of this encounter Visit Diagnoses Not on filedocumented in this encounter Care Teams Gas Cutting Machine Operator Relationship Specialty Start Date End Date Robert Sutton DO PCP - General 05/13/15 documented as of this encounter
--- OUTSIDE RECORDS SUMMARY | 2025-05-04 08:23 | XMS_ITS | Encounter Summary ---
Author Organization [facility] Address [address] [place] [address] Care Team Providers Care Precision Dyer Name Role Phone Robert Sutton DO Primary Care Provider Encounter Details Date Type Department Care Team (Late st Contact Info) Description 07/15/2002 Outpatient Historical [facility] Internal Medicine [address] [place] [address] Joe Pelayo MD [address] [facility] [address] [place] [address] Social History Tobacco Use Types Packs/Day Years Used Date Smoking Tobacco: Never Assessed Comments Unknown Sex and Gender Information Value Date Recorded Sex Assigned at Not on file Legal Sex Female 4:15 AM SWAGING MACHINE ADJUSTER Gender Identity Not on file Sexual Orientation Not on file documented as of this encounter Plan of Treatment Not on file documented as of this encounter Visit Diagnoses Not on filedocumented in this encounter Care Teams Precision Dyer Relationship Specialty Start Date End Date Robert Sutton DO PCP - General 05/13/15 documented as of this encounter
--- OUTSIDE RECORDS SUMMARY | 2025-05-04 08:23 | XMS_ITS | Encounter Summary ---
Author Organization [facility] Address [address] [place] [address] Care Team Providers Care Duplicator Punch Set Up Operator Name Role Phone Robert Sutton DO Primary Care Provider Encounter Details Date Type Department Care Team (Late st Contact Info) Description 07/15/2002 Outpatient Historical [facility] Internal Medicine [address] [place] [address] Joe Pelayo MD [address] [facility] [address] [place] [address] Social History Tobacco Use Types Packs/Day Years Used Date Smoking Tobacco: Never Assessed Comments Unknown Sex and Gender Information Value Date Recorded Sex Assigned at Not on file Legal Sex Female 4:15 AM RELATIONSHIP EXECUTIVE Gender Identity Not on file Sexual Orientation Not on file documented as of this encounter Plan of Treatment Not on file documented as of this encounter Visit Diagnoses Not on filedocumented in this encounter Care Teams Duplicator Punch Set Up Operator Relationship Specialty Start Date End Date Robret Sutton DO PCP - General 05/13/15 documented as of this encounter
--- OUTSIDE RECORDS SUMMARY | 2025-05-04 08:23 | XMS_ITS | Encounter Summary ---
Author Organization [facility] Address [address] [place] [address] Care Team Providers Care Airplane Dispatcher Name Role Phone Robert Sutton DO Primary Care Provider Encounter Details Date Type Department Care Team (Late st Contact Info) Description 07/15/2002 Outpatient Historical [facility] Internal Medicine [address] [place] [address] Joe Pelayo MD [address] [facility] [address] [place] [address] Social History Tobacco Use Types Packs/Day Years Used Date Smoking Tobacco: Never Assessed Comments Unknown Sex and Gender Information Value Date Recorded Sex Assigned at Not on file Legal Sex Female 4:15 AM MANAGER SQL Gender Identity Not on file Sexual Orientation Not on file documented as of this encounter Plan of Treatment Not on file documented as of this encounter Visit Diagnoses Not on filedocumented in this encounter Care Teams Airplane Dispatcher Relationship Specialty Start Date End Date Robert Sutton DO PCP - General 05/13/15 documented as of this encounter
--- OUTSIDE RECORDS SUMMARY | 2025-05-04 08:23 | XMS_ITS | Clinical Summary ---
Author Organization [facility] Address [address] [place] [address] Care Team Providers Care Restrike Hammer Operator Name Role Phone Keo Bray MD Primary Care Provider [phone] Source Comments [facility],non-owned Affiliates and Associated Physician Practices is amultiple site organization consisting of ambulatory clinics and hospital sitesin [place], [place], [place] and [place]. This disclosure is being madepursuant to the Care Everywhere program and may not contain all information available regarding this patient. Last updated 18.[facility] Allergies Active Allergy Reactions Criticality Noted Date Comments Penicillins Urticaria Medium 11/22/2016 Thiamazole Rash Medium 11/22/2016 Medications * Be aware that medications may not be up to date on this document. Alwaysverify current medications with the patient. levothyroxine (SYNTHROID) 100 MCG tablet Take 100 mcg by mouth daily before breakfast Active liothyronine (CYTOMEL) 5 MCG tablet Take 5 mcg by mouth once daily Active rivaroxaban (XARELTO) 20 MG tablet Take 20 mg by mouth daily with food Active eletriptan (RELPAX) 40 MG tablet Take 40 mg by mouth daily as needed - may repeat one time for Migraine No more than two doses may be taken in 24 hours. Active DULoxetine (CYMBALTA) 60 MG capsule Take 60 mg by mouth once daily Active Lactobacillus (PROBIOTIC ACIDOPHILUS PO) Acti ve ibandronate (BONIVA) 150 MG tablet Take 150 mg by mouth every 30 days Active gabapentin (NEURONTIN) 600 MG tablet Take 600 mg by mouth 3 times daily Active ursodiol (ACTIGALL) 300 MG capsule Take 300 mg by mouth 2 times daily Active Calcium Citrate-Vitamin D (CALCIUM CITRATE + D PO) Acti ve Iron-Vitamin C (IRON 100/C PO) Acti ve Cyanocobalamin (B-12 COMPLIANCE INJECTION) 1000 MCG/ML Active Multiple Vitamins-Mineral s (OCUVITE PO) Activ e cetirizine (ZYRTEC ALLERGY) 10 MG tablet Take 10 mg by mouth once daily Active Social History Tobacco Use Types Packs/Day Years Used Date Smoking Tobacco: Never Smokeless Tobacco: Never Alcohol Use Standard Drinks/Week Comments No 0 (1 standard drink = 0.6 oz pur e alcohol) Comments No Sex and Gender Information Value Date Recorded Sex Assigned at Not on file Legal Sex Female 4:59 AM PROVIDER RELATIONS SPECIALIST Gender Identity Not on file Sexual Orientation Not on file Last Filed Vital Signs Vital Sign Reading Time Taken Comments Blood Pressure 96/47 11/23/2016 3:10 PM CDT Pulse 74 11/23/2016 3:10 PM CDT Temperature 36.2 C (97.2 F) 11/23/2016 2:41 PM CDT Respiratory Rate 16 11/23/2016 3:10 PM CDT Oxygen Saturation 95% 11/23/2016 3:10 PM CDT Inhaled Oxygen Concentration - - Weight 79.6 kg (175 lb 6.4 oz) 11/23/2016 12:19 PM CDT Height 167.6 cm (5' 6) 11/23/2016 12:20 PM CDT Body Mass Index 28.31 11/23/2016 12:19 PM CDT Plan of Treatment Health Maintenance Due Date Last Done Comments BONE DENSITY TESTING 1960 COLOGUARD (AGES 45-75) - COL ON CA SCREENING 1958 COLON MONITORING 1958 COLONOSCOPY - COLON CA SCREENING 1958 CT COLONOGRAPHY - COLON CA SCREENING 1958 Colorectal Cancer Screening 1958 FIT - COLON CA SCREENING 1958 FLEX SIG - COLON CA SCREENING 1958 LIPID TESTING 1958 MAMMOGRAM 1958 HEPATITIS C SCREENING 10/25/1976 DTAP/TDAP/TD VACCINES (1 - Tdap) 1977 PNEUMOCOCCAL VACCINE 50+ (1 of 1 - PCV) 2008 ZOSTER VACCINE (1 of 2) 2008 DEPRESSION SCREENING 05/28/2024 COVID-19 VACCINE (1 - 2024-2 6 season) 2025 INFLUENZA VACCINE (#1) 2025 Respiratory Syncytial Virus (RSV) Vaccine Pt: or over 60 yrs (1 - 1-dose 75+ series) 2033 HEPATITIS B VACCINE Aged Out No longe r eligible based on patient's age to complete this topic HIB VACCINE Aged Out No longer eligi ble based on patient's age to complete this topic HPV VACCINE Aged Out No longer eligi ble based on patient's age to complete this topic MENINGOCOCCAL (Group B) VACC INE SHARED DECISION-MAKING Aged Out No longer eligibl e based on patient's age to complete this topic MENINGOCOCCAL GROUPS A/C/Y/W VACCINE Aged Out No longer eligible b ased on patient's age to complete this topic Insurance ANTH Care Teams Restrike Hammer Operator Relationship Specialty Start Date End Date Keo Bray MD PCP - General Internal Medicine 11/08/16
[2025-05-04 08:31] VITALS: BP 111/66; PULSE 71; RESP 16; O2SAT 98
[2025-05-04 08:51] LABS: Hematocrit 41.7 % (37.0-47.0); Hemoglobin 13.6 g/dL (12.0-15.0); Immature Granulocyte Percent A 0.2 % (0-0.5); Lymphocytes Absolute Auto 1.04 K/mm3 (0.9-3.2); Mean Corpuscular HGB Conc 32.6 g/dl (32-36); Mean Corpuscular Hemoglobin 29.5 pg (26-34); Mean Corpuscular Volume 90.5 fl (80-100); Nucleated Red Blood Cells Absolute Auto 0.000 K/mm3 (0.0-0.012); Nucleated Red Blood Cells Perc 0.0 % (0.0-0.2); Platelet Count Result 184 k/mm3 (150-375); Red Blood Count 4.61 M/mm3 (4.2-5.4); White Blood Count 4.4 K/mm3 (4.5-10.0)
[2025-05-04 08:56] LABS: Add Urine Microscopic? YES; Appearance Urine Clear (Clear); Glucose Urine UA Negative (Negative); Leukocyte Esterase Ur 2+ LEU/UL (Negative); Nitrate Urine Negative (Negative); Non Pathogenic Casts 0-2; Specific Grav Ur 1.004 (1.001-1.035)
[2025-05-04] MEDS: LIDOCAINE 5% PATCH 1 PATCH TRANSDERM (09:00)
[2025-05-04] MEDS: ONDANSETRON INJ 4 MG/2 ML VIAL IV PUSH (09:00)
[2025-05-04 09:01] VITALS: BP 100/65; PULSE 72; RESP 16; O2SAT 97
[2025-05-04] MEDS: HYDROmorphone HCL INJ (*CRX) 1 MG/ML SYR IV PUSH (09:02)
[2025-05-04 09:07] LABS: INR 1.2; Prothrombin Time 15.5 Seconds (11.1-14.7)
[2025-05-04 09:08] LABS: Partial Thromboplastin Time 37.7 Seconds (22.3-36.8)
[2025-05-04 09:17] LABS: Alanine Aminotransferase 25 U/L (6-35); Albumin Level 3.7 g/dL (3.5-5.1); Alkaline Phosphatase 56 U/L (38-126); Anion Gap 2 mmol/L (4-12); Aspartate Amino Transferase 32 U/L (14-36); Bilirubin,Total 0.6 mg/dL (0.2-1.3); Blood Urea Nitrogen 12 mg/dL (7-17); Calcium 8.9 mg/dL (8.4-10.2); Carbon Dioxide 28 mmol/L (22-30); Chloride 109 mmol/L (98-107); Estimated CRCL calculation 61 ml/min; Estimated Glomerular Filt Rate > 60; Glucose 70 mg/dL (65-110); Potassium 3.9 mmol/L (3.4-5.0); Sodium 139 mmol/L (137-145); Total Protein 6.3 g/dL (6.3-8.2)
--- NOTE | 2025-05-04 09:20 | PC.NURSE ---
PVR was done approximately an hour after the patient voided, there was 250mL.
[2025-05-04 09:31] VITALS: BP 113/68; PULSE 71; RESP 16; O2SAT 95
--- NOTE | 2025-05-04 10:31 | ED.BACK ---
HPI - Back Pain/Injury General Chief Complaint: Back Pain/Injury Stated Complaint: BACK PAIN X4D Time Seen by Provider: 05/04/25 08:13 Source: patient, RN notes reviewed and old records reviewed Mode of arrival: wheelchair Limitations: no limitations History of Present Illness HPI Narrative: THis is a 64 year old female with history of chronic back pain who presents for evaluation of low back pain for 4 days. She reports she is sleeping in friends bed that is really soft and it is causing her to have back pain. She reports her back pain is gradually worsening. Her pain is located on both sides and it worse with movement. She denies leg numbness or tingling. She denies any urinary difficulty. She reports she feels weak. She has been trying tylenol and treatments at home. Related Data Home Medications ?Medication ?Instructions ?Recorded ?Confirmed ?Last Taken ?Type levothyroxine 112 mcg tablet 112 mcg PO DAILY 04/13/20 03/31/24 Unknown History (Synthroid) liothyronine 5 mcg tablet 5 mcg PO TID 04/13/20 03/31/24 Unknown History rivaroxaban 20 mg tablet (Xarelto) 20 mg PO DAILY 04/13/20 03/31/24 Unknown History topiramate 50 mg tablet 50 mg PO DAILY 04/13/20 03/31/24 Unknown History B12 1,000 mg IM MONTHLY 01/03/21 03/31/24 Unknown History gabapentin 300 mg PO DAILY 01/03/21 03/31/24 Unknown History lansoprazole 15 mg BYMOUTH DAILY 01/03/21 03/31/24 Unknown History Calcium Citrate + D 1 tablet PO BID 02/17/22 03/31/24 Unknown History denosumab 60 mg/mL subcutaneous 60 mg subcut [id number] 02/17/22 03/31/24 Unknown History syringe (Prolia) iron, carbonyl 15 mg chewable 30 mg PO HS 02/17/22 03/31/24 Unknown History tablet (Iron Chews) magnesium 250 mg tablet 250 mg PO DAILY 02/17/22 03/31/24 Unknown History modafinil 200 mg tablet 200 mg PO QAM 02/17/22 03/31/24 Unknown History multivitamin 1 tablet PO DAILY 02/17/22 03/31/24 Unknown History rizatriptan 10 mg tablet 10 mg PO Q12-24H PRN Migraine 02/17/22 03/31/24 Unknown History Headache vitamin B complex 1 tablet PO DAILY 02/17/22 03/31/24 Unknown History ramelteon 8 mg tablet 8 mg PO HS 03/23/23 03/31/24 Unknown History terbinafine PO DAILY 03/31/24 10/01/24 History Allergies Allergy/AdvReac Type Severity Reaction Status Date / Time methimazole Allergy Mild Rash Verified 05/04/25 07:53 Penicillins Allergy Unknown Hives Verified 05/04/25 07:53 PMFSH Past Medical History Medical History Hypothyroidism History of pulmonary embolism History of DVT (deep vein thrombosis) Surgical History Surgical History H/O arthroscopic knee surgery Family History Family History Mother Hypothyroidism Social History Social History Smoking status: Never smoker Alcohol intake: never Substance use: never Living arrangements: with family 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 Gender identity (if verbalized by the patient): Female Sexual Orientation (if Verbalized by the Patient): Straight or Heterosexual Spiritual care concerns: No Exam Const: General: healthy appearing; No diaphoretic or ill appearing Nutritional Appearance: well nourished Orientation/consciousness: patient oriented x3 Other: appears to be in pain HENMT: Mouth: Yes Normal oral and palatal mucosa present, Yes lip normal and Yes moist mucous membranes Eyes: EOM: EOMs intact bilaterally Chest: Chest palpation & inspection: normal inspection of the chest Resp: Effort & Inspection: normal respiratory effort Auscultation: clear to auscultation bilaterally Cardio: Rate: regular rate Rhythm: regular rhythm Heart sounds: no murmurs GI: GI Palp: Yes Soft to palpation, No Tenderness to palpation present (GI), No Guarding due to palpation present (GI) and No Rigid due to palpation Auscultation: normal bowel sounds : General: Yes no CVA tenderness Back/Spine/Pelvis: Back: no CVA tenderness Thoracic/Lumbar Spine: No thoracic spinal tenderness and No lumbar spinal tenderness Pelvis: no buttock tenderness, no buttock swelling and no sciatic notch tenderness Skin: General skin exam: normal color Rashes: no rashes Neuro: General: patient oriented x3, moves all extremities and CN's II-XI intact bilaterally Extrem: General: no clubbing, cyanosis or edema and no pedal edema Psych: Mental Status: mental status grossly normal Affect: normal affect Course Reevaluation(s) Reevaluation #1: Patient states she feels like her symptoms have improved from 9- 6. She was able to walk to bathroom with minimal distress. She report when her postvoid residual was done initially , that her bladder was checked over an hour later so she is willing to have test redone. Date: 05/04/25 Time: 11:08 Vital Signs Vital signs: Vital Signs Temperature 97.4 F L 05/04/25 08:05 Pulse Rate 86 05/04/25 08:05 Respiratory Rate 16 05/04/25 08:05 Blood Pressure 105/87 05/04/25 08:05 Pulse Oximetry 100 05/04/25 08:05 Oxygen Delivery Room Air 05/04/25 08:05 Temperature 97.4 F L 05/04/25 08:05 Pulse Rate 66 05/04/25 12:01 Respiratory Rate 16 05/04/25 12:01 Blood Pressure 102/71 05/04/25 12:01 Pulse Oximetry 94 05/04/25 12:01 Oxygen Delivery Room Air 05/04/25 08:05 [facility] Narrative Medical decision making narrative: Patient presents with exacerbation of her back. She is on anticoagulation so considered hematoma as well. She was given Dilaudid 1 mg IV for pain with zofran 4 mg IV. I also ordered solumedrol 125 mg IV. She also had lidocaine patch place to help with pain. She reports getting relief wit her pain after the medications. Postvoid residual ordered with 20 ml after urinating . She has not sign of retention or weakness. She does not have any neuro deficits so at this time she is stable for outpatient evaluation. She is comfortable with plan Differential Diagnosis Differential Diagnosis: lumbar radiculopathy, spinal stenosis, cauda equina, lumbar strain, lumbar spasm, urinary retention Medical Records I have reviewed the following patient records and this information was taken into consideration when formulating the assessment and plan.: previous ER visits Lab Data [facility] Lab Attestation statement: I personally reviewed the patient's lab results. 05/04/25 08:44 05/04/25 08:44 Labs: Lab Results 05/04/25 Range/Units 08:44 WBC 4.4 L (4.5-10.0) K/mm3 RBC 4.61 (4.2-5.4) M/mm3 Hgb 13.6 (12.0-15.0) g/dL Hct 41.7 (37.0-47.0) % MCV 90.5 (80-100) fl MCH 29.5 (26-34) pg MCHC 32.6 (32-36) g/dl RDW 13.9 (11.5-14.5) % Plt Count 184 (150-375) k/mm3 MPV 9.0 (7.4-10.4) fl Immature Gran % (Auto) 0.2 (0-0.5) % Neut % (Auto) 65.1 (45.5-73.1) % Lymph % (Auto) 23.9 (18.3-44.2) % [place] % (Auto) 7.3 (2.6-8.5) % Eos % (Auto) 2.8 (0-4.4) % Baso % (Auto) 0.7 (0.2-1.2) % Lymph # (Auto) 1.04 (0.9-3.2) K/mm3 [place] # (Auto) 0.3 (0.1-0.6) K/mm3 Eos # (Auto) 0.1 (0-0.3) K/mm3 Baso # (Auto) 0.0 (0.0-0.1) K/mm3 Abs Immat Gran (auto) 0.01 (0.00-0.031) K/mm3 Absolute Neuts (auto) 2.8 (1.3-6.7) K/mm3 Absolute Nucleated RBC 0.000 (0.0-0.012) K/mm3 Nucleated RBC % 0.0 (0.0-0.2) % PT 15.5 H (11.1-14.7) Seconds INR 1.2 APTT 37.7 H (22.3-36.8) Seconds Sodium 139 (137-145) mmol/L Potassium 3.9 (3.4-5.0) mmol/L Chloride 109 H (98-107) mmol/L Carbon Dioxide 28 (22-30) mmol/L Anion Gap 2 L (4-12) mmol/L BUN 12 D (7-17) mg/dL Creatinine 0.73 (0.7-1.0) mg/dL Estim Creat Clear Calc 61 ml/min Estimated GFR > 60 (59 - ) Glucose 70 (65-110) mg/dL Calcium 8.9 (8.4-10.2) mg/dL Total Bilirubin 0.6 (0.2-1.3) mg/dL AST 32 (14-36) U/L ALT 25 (6-35) U/L Alkaline Phosphatase 56 (38-126) U/L Total Protein 6.3 (6.3-8.2) g/dL Albumin 3.7 (3.5-5.1) g/dL Urine Color Yellow (Yellow) Urine Appearance Clear (Clear) Urine pH 7.0 (5.0-9.0) Ur Specific [place] 1.004 (1.001-1.035) Urine Protein Negative (Negative) mg/dL Urine Glucose (UA) Negative (Negative) mg/dL Urine Ketones Negative (Negative) mg/dL Ur Blood (Man) Negative (Negative) Urine Nitrate Negative (Negative) Urine Bilirubin Negative (Negative) Urine Urobilinogen 0.2 (<2.0) mg/dL Leukocyte Esterase Rfl 2+ H (Negative) DONOVAN/UL Urine RBC 0-2 (0-2) /hpf Urine WBC 6-10 H (0-3) /hpf Ur Squamous Epith Cells Occasional (Few) /hpf Urine Bacteria None seen /hpf Urine Casts 0-2 Imaging Data Radiologist's impression: ITS Impressions Lumbar Spine CT 05/04/25 10:03 IMPRESSION: No acute or aggressive bony or soft tissue process seen. Multilevel degenerative changes with probable spinal canal stenosis at L4-5 and prominent left para midline disc osteophyte calcification at T12-L1. Comment: Consider correlation with follow-up lumbar spine MRI for optimal sensitivity. Discharge Plan Discharge Clinical Impression: Acute exacerbation of chronic low back pain Patient Disposition: Home Condition: Improved Instructions: Antibiotic Form, Acute Low Back Pain (ED) Patient Language: Albanian Prescriptions: New methylprednisolone [Medrol (Kyle)] 4 mg tablets,dose pack See Rx Instructions .ROUTE .COMPLEX Qty: 21 0RF Rx Instructions: for 6 days oxycodone-acetaminophen [Percocet] 5-325 mg tablet 1 tablet PO Q4H PRN (Reason: pain) Qty: 10 0RF nitrofurantoin monohyd/m-cryst [Macrobid] 100 mg capsule 100 mg PO Q12H 5 Days Qty: 10 0RF Rx Instructions: must administer with a meal/food No Action B12 1,000 mg IM MONTHLY gabapentin 300 mg PO DAILY lansoprazole 15 mg BYMOUTH DAILY multivitamin Tablet 1 tablet PO DAILY rizatriptan 10 mg tablet 10 mg PO Q12-24H MDD 30 mg PRN (Reason: Migraine Headache) Iron Chews 15 mg Tablet,Chewable 30 mg PO HS modafinil 200 mg Tablet 200 mg PO QAM vitamin B complex [B50 Balanced] Tablet 1 tablet PO DAILY magnesium 250 mg Tablet 250 mg PO DAILY Prolia 60 mg/mL syringe 60 mg SUBCUT [id number] Calcium Citrate + D 1 tablet PO BID ramelteon 8 mg Tablet 8 mg PO HS terbinafine 250 mg PO DAILY Rx Instructions: Daily for 7 day of the month liothyronine 5 mcg Tablet 5 mcg PO TID levothyroxine [Synthroid] 112 mcg Tablet 112 mcg PO DAILY topiramate 50 mg Tablet 50 mg PO DAILY Xarelto 20 mg Tablet 20 mg PO DAILY Follow-up/Referrals: sherri [Other] Joselito Gomez MD [Physician, Neurosurgery] Katarina,Keo Linn MD [Primary Care Provider]
[2025-05-04 12:01] VITALS: BP 102/71; PULSE 66; RESP 16; O2SAT 94
== END 2025-05-04 12:09 | disposition home or self-care (01) ==
PROVIDERS: Emergency Provider General Practice; PCP Internal Medicine
DX: M54.50 Low back pain, unspecified (principal); G89.29 Other chronic pain; E03.9 Hypothyroidism, unspecified; Z86.711 Personal history of pulmonary embolism; Z86.718 Personal history of other venous thrombosis and embolism; R82.998 Other abnormal findings in urine; Z79.01 Long term (current) use of anticoagulants
CPT/HCPCS: 36415; 72131; 80053; 81001; 85025; 85610; 85730; 87086; 96374; 96375; 99284; A9270; J1171; J2405; J2919